=== PATIENT | male | born 1960 | race African-American/Black ===

== ENCOUNTER 2017-02-14 10:25 | Emergency (ER) | payer SELFPAY ==
[~2017-02-14] VITALS: Ht 170.2 cm; Wt 69.0 kg
[2017-02-14 10:27] VITALS: BP 131/81; PULSE 92; RESP 20; TEMP 97.7; O2SAT 96
[2017-02-14] MEDS ORDERED: LISI10TA3 PO ×2 (10:48→12:04)
[2017-02-14] MEDS ORDERED: SODIUM CHLORIDE 0.9% FLUSH 10 ML FLUSH IVF PRN (11:15)
[2017-02-14] MEDS ORDERED: methylPREDNISolone SOD SUCC 125 MG/2 ML VIAL IVP ONE (11:15)
--- NOTE | 2017-02-14 11:16 | PD ---
HPI Chief Complaint: Respiratory Symptoms Time Seen by Provider: 11:12 Travel History International Travel<30 days: No Contact w/Intl Traveler<30days: No Traveled to known affect area: No History of Present Illness HPI Patient comes in complaining of COPD exacerbation has been getting worse for the past 2 weeks since he quit smoking. Patient states he was diagnosis approximately 6 months ago and has been using his Ventolin inhaler he gets free from his zoroastrianism with little relief of his symptoms. Patient states he occasionally has coughing up yellowish phlegm. Patient reports feeling wheezing and tightness throughout his chest similar to previous COPD exacerbations. Patient also requesting a refill of his lisinopril 10 mg he's been out of for his blood pressure. Denies any chest pain, fevers, abdominal pain, nausea, vomiting, headache, back pain, loss or change in bowel or bladder , or numbness or tingling anywhere. PFSH Past Medical History COPD: Yes Diminished Hearing: No Hypertension: Yes Respiratory: Yes Tetanus Vaccination: > 5 Years ?: Not Past Surgical History Surgical History: No Previous Surgery Social History Alcohol Use: No Tobacco Use: No Substance Use: Yes (Marijuana) Allergies-Medications (Allergen,Severity, Reaction): Coded Allergies: No Known Allergies (Unverified , 02/14/17) Reported Meds & Prescriptions Reported Meds & Active Scripts Active Prednisone (21) 10 mg tab Dose Pack (Prednisone) 10 Mg Pack 10 Mg PO DIRECTED Start 02/15/17 Proair Hfa 8.5 GM Inh (Albuterol Sulfate) 90 Mcg/Act Aer 2 Puff INH Q4-6H PRN 108 mcg/actuation Lisinopril 10 Mg Tab 10 Mg PO DAILY Review of Systems Except as stated in HPI: all other systems reviewed are Neg Physical Exam Narrative GENERAL: Well-developed, well nourished, in no acute distress, and non-ill appearing. SKIN: Focused skin assessment warm and dry. HEAD: Atraumatic. Normocephalic. EYES: Pupils equal and round. EOMI. No scleral icterus. No injection or drainage. ENT: No nasal bleeding or discharge. Mucous membranes pink and moist. NECK: Trachea midline. No JVD. Supple. No nuclear rigidity. CARDIOVASCULAR: Regular rate and rhythm. No murmur appreciated. RESPIRATORY: No accessory muscle use. No respiratory distress. Wheezing and decreased breath sounds noted throughout. Breath sounds equal bilaterally. Patient speaking in full sentences without difficulty. No coughing on exam. MUSCULOSKELETAL: No obvious deformities. No clubbing. No cyanosis. No edema. Full range of motion. NEUROLOGICAL: Awake and alert. No obvious cranial nerve deficits. Motor grossly within normal limits. Normal speech. PSYCHIATRIC: Appropriate mood and affect; insight and judgment normal. Data Data Last Documented VS Vital Signs Date Time Temp Pulse Resp B/P Pulse Ox O2 Delivery O2 Flow Rate FiO2 02/14/17 11:51 67 14 160/100 02/14/17 11:51 97 Nasal Cannula 2 02/14/17 10:27 97.7 Orders Iv Access Insert/Monitor (02/14/17 11:10) Ecg Monitoring (02/14/17 11:10) Oximetry (02/14/17 11:10) Oxygen Administration (02/14/17 11:10) Chest, Single Ap (02/14/17 11:10) Sodium Chloride 0.9% Flush (Ns Flush) (02/14/17 11:15) Methylprednisolone So Succ Inj (Solumedr (02/14/17 11:15) Albuterol-Ipratropium Neb (Duoneb Neb) (02/14/17 11:15) Electrocardiogram (02/14/17 10:48) MDM Medical Decision Making Medical Screen Exam Complete: Yes Emergency Medical Condition: Yes Interpretation(s) EKG reviewed by Dr. Grover shows sinus rhythm ventricular is 72. No STEMI. Chest x-ray read by the radiologist shows: No acute disease. Differential Diagnosis COPD exacerbation, pneumonia, medication refill, medical noncompliance, other Narrative Course The patient looks great and improved well with Nebulizer and steroid medication. The patient is moving air well and in no distress nor significant dyspnea, and oxygen saturation is within normal limits. There is no clinical or radiological evidence to suggest pneumonia at this time. Diagnosis, plan of care and management were discussed with the patient who agreed with plan and feels better and ready to go home. The patient was instructed to return if worsen, worsening difficulty breathing or wheezing, persistent fever, chest pain or as needed. The patient has a prior history of hypertension and admits to noncompliance with their antihypertensive medications secondary to running out. The patient has no symptoms as well. The patient denied headache, changes in vision, nausea , vomiting, dizziness, weakness or loss of sensation. The patient denied and chest, back or abdominal pain. The patient also denied any dyspnea on exertion, orthopnea or PND. The patient denies any edema to extremities. The patients blood pressures at discharge were at an acceptable level. I discussed with the patient the importance of continuing daily antihypertensive and to not skip doses or stop medications suddenly without instruction by their primary care physician. The patient was given a refill of his medication and instructed to follow up for potential adjustment of blood pressure medications. Return warnings were given to the patient and the patient agreed with plan of care. Patient in no obvious distress upon re-evaluation. All pertinent Radiology result(s) discussed with patient. Patient was asked if they wanted to speak to my attending, which the patient did not wish to do at this time. Discussed patient with Dr. Grover prior to discharge, who is in agreement with plan of care and disposition. Any questions/concerns in reference to patient diagnosis/ condition discussed and clarified prior to patient's discharge. Reinforced sheer importance of close follow up with patient's primary physician or primary care clinic. Instructed patient to return to ED immediately, if symptoms return/ worsen. Pt showed understanding of above instructions. Further instructions and recommendations were detailed in discharge paperwork. Pt ambulated without difficulty out of ED at discharge. Diagnosis Primary Impression: COPD exacerbation Additional Impression: Medication refill Referrals: [facility] Patient Instructions: COPD (Chronic Obstructive Pulmonary Disease) (ED), General Instructions Additional Instructions: Follow-up with your primary care physician this week for reevaluation. Take all medication as prescribed. Return to the emergency department if symptoms get worse. Med/Other Pt SpecificInfo: Prescription(s) given Scripts Prednisone (21) 10 mg tab Dose Pack 10 Mg Pack10 Mg PO DIRECTED #1 DSPK Ref 0 Start 02/15/17 Prov:Aryan Grover MD 02/14/17 Albuterol 8.5 GM Inh (Proair Hfa 8.5 GM Inh)90 Mcg/Act Aer2 Puff INH Q4-6H PRN ( SHORTNESS OF BREATH) #1 INHALER Ref 0 108 mcg/actuation Prov:Aryan Grover MD 02/14/17 Lisinopril 10 Mg Tab10 Mg PO DAILY #30 TAB Ref 0 Prov:Aryan Grover MD 02/14/17 Disposition: 01 DISCHARGE HOME Condition: Stable Kevin Armstrong Feb 14, 2017 11:15
[2017-02-14 11:30] VITALS: O2SAT 98
[2017-02-14] MEDS: RESP: ALBUTEROL 2.5 MG/IPRATROPIUM 0.5 MG NEB (SCH) INH (11:30)
--- NOTE | 2017-02-14 11:45 | RADRPT ---
EXAM DATE/TIME: 02/14/2017 11:15 [facility] COMPARISON: No previous studies available for comparison. INDICATIONS : Patient has been short of breath for a week. MEDICAL HISTORY : None. SURGICAL HISTORY : None. ENCOUNTER: Initial ACUITY: 1 week PAIN SCORE: 0/10 LOCATION: Bilateral chest FINDINGS: A single view of the chest demonstrates the lungs to be symmetrically aerated without evidence of mas s, infiltrate or effusion. The cardiomediastinal contours are unremarkable. Osseous structures are intact. CONCLUSION: No acute disease. Sameer Costa MD FACR on February 14, 2017 at 11:43 Board Certified Radiologist. This report was verified electronically.
[2017-02-14 11:51] VITALS: BP 160/100; PULSE 67; RESP 14
[2017-02-14] MEDS ORDERED: PRED10PA PO (12:04)
[2017-02-14] MEDS ORDERED: ALBUAER3 INH (12:04)
--- NOTE | 2017-02-14 15:56 | EKG ---
Date Performed: 02/14/2017 Time Performed: 10:48:11 PTAGE: 56 years EKG: Sinus rhythm POSSIBLE RIGHT ATRIAL ENLARGEMENT POSSIBLE LEFT ATRIAL ENLARGEMENT MARKED LEFT AXIS DEVIATION LEFT A NTERIOR FASCICULAR BLOCK ABNORMAL ECG NO PREVIOUS TRACING DOCTOR: Juan Diego Nguyen Interpretating Date/Time 02/14/2017 15:54:48
[2017-02-15] MEDS ORDERED: HEPARIN-NS/PF INJ 500 ML ONE (16:24)
[2017-02-15] MEDS ORDERED: HEPARIN SODIUM - IV 10,000 UNITS/10 ML VIAL ONE (16:25)
[2017-02-15] MEDS ORDERED: NITROGLYCERIN INJ 5 ML ONE (16:25)
[2017-02-15] MEDS ORDERED: MIDAZOLAM HCL 2 MG/2 ML VIAL ONE (16:26)
== END 2017-02-14 12:39 | disposition home or self-care (01) ==
LOC: NEPE 10:25
DX: J44.1 Chronic obstructive pulmonary disease with (acute) exacerbation (principal); Z76.0 Encounter for issue of repeat prescription; F12.10 Cannabis abuse, uncomplicated
CPT/HCPCS: 71010; 93005; 94640; 94664; 96374; 99284; J2930; J1644; J2250; J3010

== ENCOUNTER 2017-02-15 01:39 | Inpatient (IN) | payer SELFPAY ==
[2017-02-15] VITALS (15 sets, daily range): BP systolic 108–150; BP diastolic 60–90; PULSE 56–90; RESP 16–20; TEMP 97.6–98.9; O2SAT 94–99
[~2017-02-15] VITALS: Ht 170.2 cm; Wt 69.0 kg
[~2017-02-15 01:39] MED LIST: ALBUAER3 INH; LISI10TA3 PO; PRED10PA PO
[2017-02-15] MEDS ORDERED: SODIUM CHLORIDE 0.9% FLUSH 10 ML FLUSH IVF PRN (02:00)
[2017-02-15] MEDS ORDERED: ASPIRIN 81 MG CHEW TAB PO ONE (02:00)
[2017-02-15] MEDS ORDERED: NITROGLYCERIN 0.4 MG SL 25 TABS/BTL SL ONE (02:00)
--- NOTE | 2017-02-15 02:22 | RADRPT ---
EXAM DATE/TIME: 02/15/2017 02:01 [facility] COMPARISON: CHEST SINGLE AP, February 14, 2017, 11:15. INDICATIONS : Chest pain. MEDICAL HISTORY : None. SURGICAL HISTORY : None. ENCOUNTER: Initial ACUITY: 1 day PAIN SCORE: 0/10 LOCATION: Bilateral chest FINDINGS: A single view of the chest demonstrates the lungs to be symmetrically aerated without evidence of mas s, infiltrate or effusion. The cardiomediastinal contours are unremarkable. Osseous structures are intact. CONCLUSION: No acute disease. Evin Flanagan MD on February 15, 2017 at 2:20 Board Certified Radiologist. This report was verified electronically.
[2017-02-15 02:29] LABS: BASOPHIL % 0.4 % (0.0-2.0); EOSINOPHIL % 0.1 % (0.0-4.0); HEMATOCRIT 45.7 % (39.0-51.0); HEMO FLAGS DIFF FINAL; LYMPH % 6.2 % (9.0-44.0); LYMPHOCYTE # 0.4 TH/MM3 (1.0-4.8); MEAN CELL VOLUME 85.6 FL (80.0-100.0); MEAN CORPUSCULAR HEMOGLOBIN 28.7 PG (27.0-34.0); MEAN CORPUSCULAR HGB CONC 33.5 % (32.0-36.0); MONO % 8.8 % (0.0-8.0); NEUT % 84.5 % (16.0-70.0); PLATELET COUNT 176 TH/MM3 (150-450); RED BLOOD COUNT 5.34 MIL/MM3 (4.50-5.90); RED CELL DISTRIBUTION WIDTH 16.2 % (11.6-17.2); WHITE BLOOD COUNT 7.1 TH/MM3 (4.0-11.0)
[2017-02-15 02:41] LABS: APTT (PATIENT) 21.3 SEC (24.3-30.1); PROTHROMBIN TIME - PATIENT 11.5 SEC (9.8-11.6)
--- NOTE | 2017-02-15 02:41 | PD ---
HPI Chief Complaint: Chest Pain Time Seen by Provider: 01:45 Travel History International Travel<30 days: No Contact w/Intl Traveler<30days: No Traveled to known affect area: No History of Present Illness HPI The patient is a 56 year old male who presents to the [facility] [address] emergency department with a history of chest pain that began at 9 PM today. It has been coming and going. It is located in the left chest, shoulder, and left arm. He has associated SOB, nausea and vomiting x3 with diaphoresis. He denies any history of CAD. He denies having a stress test in the past. He has a history of HTN and a prior history of smoking. He reports that he quit smoking 3 weeks ago. Interestingly, the patient was just seen in the emergency department yesterday related to his COPD exacerbation and being out of his usual blood pressure medication. He was given a prescription, however he has not filled the prescription yet. Ambulance services arrived at the scene to evaluate the patient and the patient reportedly had a heart rate in the 50s with a blood pressure systolic in the 60s. IV access was obtained, the patient was given atropine 0.5 mg IV and normal saline a 500 mL bolus. The patient on arrival has a blood pressure systolic in the 100s. The patient reports continued nausea. His heart rate on arrival is in the 80s. The patient denies any history of fever, cough, congestion, neck pain, abdominal pain, diarrhea, urinary symptoms, or neurologic symptoms. [facility] Past Medical History Narrative Medical The patient's past medical history is significant for COPD, Hypertension. He denies having a PCP. COPD: Yes Diminished Hearing: No Hypertension: Yes Respiratory: Yes ?: Not Past Surgical History Narrative Surgical The patient's past surgical history is reportedly none. Surgical History: No Previous Surgery Social History Alcohol Use: No Tobacco Use: No (quit 3 weeks ago.) Substance Use: Yes (Marijuana) Allergies-Medications (Allergen,Severity, Reaction): Coded Allergies: No Known Allergies (Unverified , 02/14/17) Reported Meds & Prescriptions Reported Meds & Active Scripts Active Prednisone (21) 10 mg tab Dose Pack (Prednisone) 10 Mg Pack 10 Mg PO DIRECTED Start 02/15/17 Proair Hfa 8.5 GM Inh (Albuterol Sulfate) 90 Mcg/Act Aer 2 Puff INH Q4-6H PRN 108 mcg/actuation Lisinopril 10 Mg Tab 10 Mg PO DAILY Review of Systems Except as stated in HPI: all other systems reviewed are Neg General / Constitutional: No: Fever Eyes: No: Visual changes HENT: Positive: Lightheadedness, No: Headaches Cardiovascular: Positive: Chest Pain or Discomfort, Diaphoresis, Dyspnea on exertion Respiratory: Positive: Shortness of Breath Gastrointestinal: Positive: Nausea, Vomiting, No: Abdominal Pain Genitourinary: No: Dysuria Musculoskeletal: No: Pain Skin: No Rash Neurologic: Positive: Dizziness, No: Weakness, Change in Mentation, Slurred Speech, Sensory Disturbance Psychiatric: No: Depression Endocrine: No: Polydipsia Hematologic/Lymphatic: No: Easy Bruising Physical Exam Narrative General: The patient is a well-developed well-nourished male in no acute distress. Head and Neck exam: Head is normocephalic atraumatic. Eyes: EOMI, pupils are equal round and reactive to light. Nose: Midline septum with pink mucous membranes Mouth: Dentition unremarkable. Moist mucus membranes. Posterior oropharynx is not erythematous. No tonsillar hypertrophy. Uvula midline. Airway patent. Neck: No palpable lymphadenopathy. No nuchal rigidity. No thyromegaly. Cardiovascular: Regular rate and rhythm without murmurs, gallops, or rubs. No pulse deficit to the extremities and simultaneous auscultation and palpation of his radial artery. Lungs: Clear to auscultation bilaterally. No wheezes, rhonchi, or rales. Abdomen: Soft, without tenderness to palpation in all 4 quadrants of the abdomen. No guarding, rebound, or rigidity. Normal bowel sounds are audible. No tenderness on palpation of McBurney's point. Negative [place] sign. Extremities: No clubbing, cyanosis, or edema. 2+ pulses in all 4 extremities. Back: No spinous process tenderness to palpation. No costovertebral angle tenderness to palpation. Neurologic Exam: Grossly nonfocal. Skin Exam: No rash noted. Intact skin that is warm and dry. Data Data Last Documented VS Vital Signs Date Time Temp Pulse Resp B/P Pulse Ox O2 Delivery O2 Flow Rate FiO2 02/15/17 03:10 85 18 150/80 98 Nasal Cannula 2 02/15/17 01:46 97.6 Orders Electrocardiogram (02/15/17 01:47) B-Type Natriuretic Peptide (02/15/17 01:47) Ckmb (Isoenzyme) Profile (02/15/17 01:47) Complete Blood Count With Diff (02/15/17 01:47) Comprehensive Metabolic Panel (02/15/17 01:47) D-Dimer (02/15/17 01:47) Magnesium (Mg) (02/15/17 01:47) Prothrombin Time / Inr (Pt) (02/15/17 01:47) Act Partial Throm Time (Ptt) (02/15/17 01:47) Troponin I (02/15/17 01:47) Lipase (02/15/17 01:47) Chest, Single Ap (02/15/17 01:47) Ecg Monitoring (02/15/17 01:47) Bilateral Bp Monitoring (02/15/17 01:47) Iv Access Insert/Monitor (02/15/17 01:47) Oximetry (02/15/17 01:47) Oxygen Administration (02/15/17 01:47) Aspirin Chew (Aspirin Chew) (02/15/17 02:00) Sodium Chloride 0.9% Flush (Ns Flush) (02/15/17 02:00) Nitroglycerin Sl (Nitrostat Sl) (02/15/17 02:00) CKMB (02/15/17 02:10) CKMB% (02/15/17 02:10) Ondansetron Inj (Zofran Inj) (02/15/17 03:15) Sodium Chlorid 0.9% 500 Ml Inj (Ns 500 M (02/15/17 03:15) Ventilation & Perfusion Scan (02/15/17 ) Place In Observation (02/15/17 ) Vital Signs (Adult) Q4H (02/15/17 04:07) Activity Oob With Assistance (02/15/17 04:07) Orthotics Prosthetics Technician / Telemetry .CONTINUOUS (02/15/17 04:07) Sodium Chloride 0.9% Flush (Ns Flush) (02/15/17 04:15) Sodium Chloride 0.9% Flush (Ns Flush) (02/15/17 09:00) Basic Metabolic Panel (Bmp) (02/16/17 06:00) Complete Blood Count With Diff (02/16/17 06:00) Case Management Consult (02/15/17 04:07) Naloxone Inj (Narcan Inj) (02/15/17 04:15) Admit Order (Ed Use Only) (02/15/17 04:08) Sodium Chlor 0.9% 1000 Ml Inj (Ns 1000 M (02/15/17 04:15) Labs Laboratory Tests Test 02/15/17 02:10 White Blood Count 7.1 TH/MM3 Red Blood Count 5.34 MIL/MM3 Hemoglobin 15.3 GM/DL Hematocrit 45.7 % Mean Corpuscular Volume 85.6 FL Mean Corpuscular Hemoglobin 28.7 PG Mean Corpuscular Hemoglobin 33.5 % Concent Red Cell Distribution Width 16.2 % Platelet Count 176 TH/MM3 Mean Platelet Volume 9.5 FL Neutrophils (%) (Auto) 84.5 % Lymphocytes (%) (Auto) 6.2 % Monocytes (%) (Auto) 8.8 % Eosinophils (%) (Auto) 0.1 % Basophils (%) (Auto) 0.4 % Neutrophils # (Auto) 6.0 TH/MM3 Lymphocytes # (Auto) 0.4 TH/MM3 Monocytes # (Auto) 0.6 TH/MM3 Eosinophils # (Auto) 0.0 TH/MM3 Basophils # (Auto) 0.0 TH/MM3 CBC Comment DIFF FINAL Differential Comment Prothrombin Time 11.5 SEC Prothromb Time International 1.0 RATIO Ratio Activated Partial 21.3 SEC Thromboplast Time D-Dimer Quantitative (PE/DVT) 0.66 MG/L FEU Sodium Level 141 MEQ/L Potassium Level 5.2 MEQ/L Chloride Level 109 MEQ/L Carbon Dioxide Level 22.9 MEQ/L Anion Gap 9 MEQ/L Blood Urea Nitrogen 26 MG/DL Creatinine 2.58 MG/DL Estimat Glomerular Filtration 32 ML/MIN Rate Random Glucose 137 MG/DL Calcium Level 8.5 MG/DL Magnesium Level 2.0 MG/DL Total Bilirubin 0.3 MG/DL Aspartate Amino Transf 15 U/L (AST/SGOT) Alanine Aminotransferase 22 U/L (ALT/SGPT) Alkaline Phosphatase 77 U/L Total Creatine Kinase 114 U/L Creatine Kinase MB 1.0 NG/ML Troponin I 0.02 NG/ML B-Type Natriuretic Peptide 6 PG/ML Total Protein 7.3 GM/DL Albumin 3.3 GM/DL Lipase 79 U/L MDM Medical Decision Making Medical Screen Exam Complete: Yes Emergency Medical Condition: Yes Medical Record Reviewed: Yes Interpretation(s) Last Impressions Chest X-Ray 02/15/17 0147 Signed Impressions: Service Date/Time: Wednesday, February 15, 2017 02:01 - CONCLUSION: No acute disease. Evin Flanagan MD Lung Scan-VQ Nuclear Medicine 02/15/17 0000 Signed Impressions: Service Date/Time: Wednesday, February 15, 2017 08:31 - CONCLUSION: Low probability scan Angelo Bower MD Differential Diagnosis Acute coronary syndrome, versus cardiac arrhythmia, versus pneumothorax, versus pneumonia, versus COPD exacerbation, versus pulmonary embolism Narrative Course During the course of the patients emergency department visit, the patients history, examination, and differential diagnosis were reviewed with the patient. The patient had IV access obtained and blood work sent for analysis. The patient was placed on a air sampling and monitoring with oximetry and blood pressure monitoring. An ECG was done on arrival. The patient's ECG reveals a sinus rhythm with a heart rate of 90, QRS duration is 115 ms with an incomplete right bundle branch block, QTC is 431 ms, no acute ST segment elevation is noted. The patient was initially provided 162 mg of aspirin by mouth. The patient was given a second normal saline 500 mL bolus, Zofran 4 mg IV. The patients laboratory studies were reviewed and remarkable for a white count of 7.1, hemoglobin 15.3, platelets 176 with neutrophils 84.5, lymphocytes 6.2, monocytes 8.8, CMP is remarkable for a potassium of 5.2, chloride 109, BUN 26, creatinine 2.58, glucose 137, CPK 114, troponin I is 0.02, BNP is 6, lipase 79, PT PTT unremarkable, d-dimer 0.66. Given the patient's elevation of his creatinine, VQ scan has been ordered to rule out PE. Radiology studies were reviewed and remarkable for a chest x-ray that shows no acute cardiopulmonary disease. The patient will be admitted to the hospital for rule out serial cardiac enzyme protocol and additional testing to include a VQ scan, additional IV hydration due to hypotension prior to arrival and renal insufficiency The patients results were discussed with the patient, including the plan of care. I explained that further testing and/ or monitoring is indicated based on the patients history, examination, and/ or laboratory findings. Therefore, I recommended admission for additional evaluation. The patient expressed understanding and was agreeable with this plan. The patient was admitted to the hospital in stable condition and [facility] Physician Communication Physician Communication The patient's case was discussed with Dr. Izquierdo who did agree to admit the patient for further evaluation and treatment at this time. Diagnosis Primary Impression: Chest pain, rule out acute myocardial infarction Admitting Information Admitting Physician Requests: Observation Padmini Gil MD Feb 15, 2017 02:41
[2017-02-15 03:00] LABS: ALKALINE PHOSPHATASE 77 U/L (45-117); ALT (GPT) 22 U/L (12-78); ANION GAP 9 MEQ/L (5-15); AST (GOT) 15 U/L (15-37); BICARBONATE 22.9 MEQ/L (21.0-32.0); BLOOD UREA NITROGEN 26 MG/DL (7-18); CHLORIDE 109 MEQ/L (98-107); CREATINE KINASE 114 U/L (39-308); GLOMERULAR FILTRATION RATE 32 ML/MIN (>89); POTASSIUM 5.2 MEQ/L (3.5-5.1); SODIUM (NA) 141 MEQ/L (136-145); TOTAL BILIRUBIN ADULT 0.3 MG/DL (0.2-1.0)
[2017-02-15] MEDS ORDERED: SODIUM CHLORID 0.9% 500 ML INJ 500 ML IV ONE (03:15)
[2017-02-15] MEDS ORDERED: ONDANSETRON HCL 4 MG/2 ML VIAL IV ONE (03:15)
[2017-02-15] MEDS ORDERED: NALOXONE HCL 0.4 MG/ML AMP IV PRN (04:15)
[2017-02-15] MEDS ORDERED: SODIUM CHLORIDE 0.9% FLUSH 10 ML FLUSH IV FLUSH PRN (04:15)
[2017-02-15] MEDS: SODIUM CHLOR 0.9% 1000 ML INJ 1,000 ML IV SCH ×3 (04:47→21:37)
--- NOTE | 2017-02-15 09:19 | RADRPT ---
EXAM DATE/TIME: 02/15/2017 08:31 [facility] COMPARISON: CHEST SINGLE AP, February 15, 2017, 2:01. INDICATIONS : Chest pain and dyspnea. DOSE: 1.6 mCi Tc99m DTPA 8.8 mCi Tc99m MAA MEDICAL HISTORY : Hypertension. Chronic obstructive pulmonary disease. SURGICAL HISTORY : None. ENCOUNTER: Initial ACUITY: 1 day PAIN SCALE: 3/10 LOCATION: Bilateral chest TECHNIQUE: Following five minutes of tidal breathing of DTPA aerosol, planar images of the lungs were performed in eight projections. The patient was then injected with MAA, and eight-view perfusion scan was perf ormed. FINDINGS: Heterogeneous pattern of perfusion with non-segmental defects and multiple matched defects. No signif icant mismatches to elevate likelihood of pulmonary embolism. CONCLUSION: Low probability scan Angelo Bower MD on February 15, 2017 at 9:16 Board Certified Radiologist. This report was verified electronically.
--- NOTE | 2017-02-15 09:46 | HHI.HP ---
[facility] No Primary Care Physician Admission Diagnosis cp r/o Mi, near syncope, transient hypotension Diagnoses: Chief Complaint: Chest pain Travel History International Travel<30 Days: No Contact w/Intl Traveler <30 Da: No Traveled to Known Affected Are: No History of Present Illness Written by Jigar Rowe, acting as scribe for Dr. Parrish on 02/15/17 at 09:46. This note was transcribed by scribTERESA Nieto. I, Dr. Roberto Parrish personally performed the history, physical exam, and medical decision making; and confirmed the accuracy of the information in the transcribed note. Authenticated by Dr. Roberto Parrish on 02/15/17 at 23:57. 56-year-old male with a past medical history of hypertension and COPD who presented for chest pain. The patient states about 11 PM last night he was sitting and began having severe chest pain/pressure. He states the pain radiated to his left arm into his neck. He had associated sweating, vomiting 3 , slight shortness of breath, lightheadedness/dizziness. He states the pain lasted approximately one hour and then spontaneously resolved. He states the pain was worse whenever he tried walking. He does state that he has some similar pain today, but is much less severe. He denies any prior history of heart disease, or diabetes. He did quit smoking tobacco 3 weeks ago, but continues to smoke marijuana, and does occasionally use crack cocaine, last use 3 days ago. The patient has been told that he has COPD, but is on albuterol inhaler she feels like he uses too much. States he normally has to use albuterol inhaler 1012 times daily. Review of Systems Except as stated in HPI: all other systems reviewed are Neg Past Family Social History Past Medical History Hypertension COPD Past Surgical History None Reported Medications Proair Hfa 8.5 GM Inh (Albuterol Sulfate) 90 Mcg/Act Aer 2 Puff INH Q4-6H PRN 108 mcg/actuation Lisinopril 10 Mg Tab 10 Mg PO DAILY Allergies: Coded Allergies: No Known Allergies (Unverified , 02/14/17) Active Ordered Medications Current Medications Medications (Trade) Dose Ordered Sig/Danial Route Start Time Stop Time Status Last Admin (NS Flush) 2 ml UNSCH PRN IV FLUSH 02/15/17 04:15 02/15/17 04:47 (NS Flush) 2 ml BID IV FLUSH 02/15/17 09:00 02/15/17 09:56 Naloxone HCl 0.4 mg 0.4 mg UNSCH PRN IV 02/15/17 04:15 (NS 1000 ml Inj) 1,000 ml @ 125 mls/hr Q8H IV 02/15/17 04:15 02/15/17 04:47 (Aspirin Chew) 162 mg DAILY PO 02/15/17 09:00 02/15/17 09:55 Family History Mother has numerous health conditions including heart and kidney disease Brother had multiple heart attacks, first around age 50 Social History Quit smoking tobacco 3 weeks ago Current marijuana use Occasional crack cocaine smoking Denies any alcohol use Physical Exam Vital Signs Vital Signs Date Time Temp Pulse Resp B/P Pulse Ox O2 Delivery O2 Flow Rate FiO2 02/15/17 07:57 98 Nasal Cannula 2.00 02/15/17 07:47 98.2 58 16 115/66 98 02/15/17 05:18 68 02/15/17 03:10 85 18 150/80 98 Nasal Cannula 2 02/15/17 01:50 97 Nasal Cannula 2 02/15/17 01:50 97 Nasal Cannula 2 02/15/17 01:50 88 02/15/17 01:46 97.6 90 18 108/60 99 Physical Exam GENERAL: Well-developed well-nourished. In no acute distress. SKIN: Warm and dry. No lesions noted. HEENT: Normocephalic. Pupils equal and round. Mucous membranes pink and moist. CARDIOVASCULAR: Regular rate and rhythm. No murmur appreciated. RESPIRATORY: No accessory muscle use. Clear to auscultation. Breath sounds equal bilaterally. GASTROINTESTINAL: Abdomen soft, non-tender, nondistended. Bowel sounds x4. MUSCULOSKELETAL: No obvious deformities. No clubbing or cyanosis. No edema. NEUROLOGICAL: Awake and alert. No focal neurological deficits. Moves upper and lower extremities spontaneously. Normal speech. PSYCHIATRIC: Appropriate mood and affect; insight and judgment normal. Laboratory Laboratory Tests Test 02/15/17 02:10 White Blood Count 7.1 Red Blood Count 5.34 Hemoglobin 15.3 Hematocrit 45.7 Mean Corpuscular Volume 85.6 Mean Corpuscular Hemoglobin 28.7 Mean Corpuscular Hemoglobin 33.5 Concent Red Cell Distribution Width 16.2 Platelet Count 176 Mean Platelet Volume 9.5 Neutrophils (%) (Auto) 84.5 Lymphocytes (%) (Auto) 6.2 Monocytes (%) (Auto) 8.8 Eosinophils (%) (Auto) 0.1 Basophils (%) (Auto) 0.4 Neutrophils # (Auto) 6.0 Lymphocytes # (Auto) 0.4 Monocytes # (Auto) 0.6 Eosinophils # (Auto) 0.0 Basophils # (Auto) 0.0 CBC Comment DIFF FINAL Differential Comment Prothrombin Time 11.5 Prothromb Time International 1.0 Ratio Activated Partial 21.3 Thromboplast Time D-Dimer Quantitative (PE/DVT) 0.66 Sodium Level 141 Potassium Level 5.2 Chloride Level 109 Carbon Dioxide Level 22.9 Anion Gap 9 Blood Urea Nitrogen 26 Creatinine 2.58 Estimat Glomerular Filtration 32 Rate Random Glucose 137 Calcium Level 8.5 Magnesium Level 2.0 Total Bilirubin 0.3 Aspartate Amino Transf 15 (AST/SGOT) Alanine Aminotransferase 22 (ALT/SGPT) Alkaline Phosphatase 77 Total Creatine Kinase 114 Creatine Kinase MB 1.0 Troponin I 0.02 B-Type Natriuretic Peptide 6 Total Protein 7.3 Albumin 3.3 Lipase 79 Result Diagram: 02/15/1720902/15/17 021 Imaging Last Impressions Chest X-Ray 02/15/17 0147 Signed Impressions: Service Date/Time: Wednesday, February 15, 2017 02:01 - CONCLUSION: No acute disease. Evin Flanagan MD Lung Scan-VQ Nuclear Medicine 02/15/17 0000 Signed Impressions: Service Date/Time: Wednesday, February 15, 2017 08:31 - CONCLUSION: Low probability scan Angelo Bower MD Assessment and Plan Assessment and Plan 56-year-old male with a past medical history of hypertension and COPD who presented for chest pain Chest pain: With some typical features. Initial troponin and EKG 2 with no ischemic changes. Risk factors include tobacco use, hypertension, family history. VQ scan with low probability. -Continue trending cardiac enzymes and EKGs -Start daily aspirin. -Plan for stress test in the a.m. -Check lipid profile and hemoglobin A1c COPD: Patient was seen in the ED yesterday for COPD exacerbation and was discharged with albuterol inhaler and prednisone. Chest x-ray clear. -Continue oral prednisone -Scheduled and as needed nebs -Start Symbicort Hypertension: Reportedly hypotension upon EMS arrival. Currently normotensive. -Hold home lisinopril and monitor BP. ADRIENNE: Creatinine 2.58, no previous labs for comparison. Possibly secondary to vomiting last night with dehydration. Associated potassium 5.2. -IVF and follow-up BMP DVT prophylaxis: SCDs Addendum: Second troponin was significantly elevated. Patient had typical chest pain and along with elevated troponin, he was diagnosed with NSTEMI. We started patient on heparin drip and consulted cardiology. Patient underwent cardiac cath which showed minimal non-obstructive non- dominant RCA disease. Cardiology recommended 2D echo. Patient's chest pain as well as troponin elevation was thought to be related to crack use. Patient admitted using crack approximately 3 days ago. If Echo is unremarkable, we will likely discharge patient on 02/16/2017. Discussed Condition With Patient Jgiar Rowe Feb 15, 2017 09:46 Marcie Parrish DO Feb 15, 2017 23:58
[2017-02-15] MEDS: ASPIRIN 81 MG CHEW TAB PO SCH (09:55)
[2017-02-15] MEDS: SODIUM CHLORIDE 0.9% FLUSH 10 ML FLUSH IV FLUSH SCH ×2 (09:56→21:36)
[2017-02-15] MEDS ORDERED: predniSONE 20 MG TAB PO SCH (10:15)
[2017-02-15] MEDS ORDERED: RESP: ALBUTEROL 1.25 MG/3 ML NEB (PRN) NEB (10:15)
[2017-02-15] MEDS: BUDESONIDE-FORMOTEROL 80/4.5 MCG INHALER INH SCH ×2 (11:56→21:00)
[2017-02-15] MEDS ORDERED: HEPARIN SODIUM - IV 10,000 UNITS/10 ML VIAL IV ONE (13:30)
[2017-02-15] MEDS ORDERED: HEPARIN-D5W INJ 250 ML IV SCH (13:30)
[2017-02-15] MEDS ORDERED: PILL SPLITTER OTHER PRN (13:45)
[2017-02-15] MEDS ORDERED: ATORVASTATIN 80 MG TAB PO ONE (13:45)
[2017-02-15 13:48] LABS: CKMB 32.5 NG/ML (0.5-3.6)
[2017-02-15] MEDS: RESP: ALBUTEROL 2.5 MG/IPRATROPIUM 0.5 MG NEB (SCH) NEB ×2 (14:08→20:04)
[2017-02-15] MEDS: NITROGLYCERIN 2% OINT 1 GM PACKET TOPICAL SCH ×2 (14:20→21:35)
[2017-02-15 14:48] LABS: MEAN CELL VOLUME 85.7 FL (80.0-100.0); MEAN CORPUSCULAR HEMOGLOBIN 28.2 PG (27.0-34.0); MEAN CORPUSCULAR HGB CONC 32.9 % (32.0-36.0); PLATELET COUNT 167 TH/MM3 (150-450); RED BLOOD COUNT 4.67 MIL/MM3 (4.50-5.90); RED CELL DISTRIBUTION WIDTH 16.6 % (11.6-17.2); REVIEW FLAG FINAL; WHITE BLOOD COUNT 7.2 TH/MM3 (4.0-11.0)
--- NOTE | 2017-02-15 14:53 | EKG ---
Date Performed: 02/15/2017 Time Performed: 09:40:04 PTAGE: 56 years EKG: SINUS BRADYCARDIA NONSPECIFIC ST ELEVATION BORDERLINE ECG PREVIOUS TRACING : 02/15/2017 01.47 DOCTOR: Yasemin Singh Interpretating Date/Time 02/15/2017 14:51:27
[2017-02-15 15:06] LABS: APTT (PATIENT) 24.6 SEC (24.3-30.1); PROTHROMBIN TIME - PATIENT 11.2 SEC (9.8-11.6)
[2017-02-15 15:23] LABS: CREATINE KINASE 344 U/L (39-308)
--- NOTE | 2017-02-15 15:33 | EKG ---
Date Performed: 02/15/2017 Time Performed: 01:47:25 PTAGE: 56 years EKG: Sinus rhythm WITH FIRST DEGREE AV BLOCK POSSIBLE LEFT ATRIAL ENLARGEMENT INDETERMINATE AXIS INCOMPLETE RIGHT BUND LE BRANCH BLOCK NONSPECIFIC ST & T-WAVE ABNORMALITY ABNORMAL ECG NO PREVIOUS TRACING DOCTOR: Yasemin Singh Interpretating Date/Time 02/15/2017 15:32:22
[2017-02-15] MEDS ORDERED: BIVALIRUDIN 250 MG VIAL ONE (16:45)
[2017-02-15 16:46] LABS: HEMOGLOBIN A1a 1.1 %; HEMOGLOBIN A1b 1.7 %; HEMOGLOBIN Ao 84.7 %; HEMOGLOBIN LA1C 2.1 %; HEMOGLOBIN P3 3.9 %
[2017-02-15] MEDS ORDERED: IOHEXOL 350 MG/ML 50 ML BTL (for Cath Lab) OTHER ONE (16:48)
[2017-02-15 17:28] LABS: BICARBONATE 25.4 MEQ/L (21.0-32.0); POTASSIUM 4.3 MEQ/L (3.5-5.1)
[2017-02-15] MEDS ORDERED: MISC INFORMATION XX ONE (17:30)
[2017-02-15] MEDS ORDERED: MIDAZOLAM HCL 2 MG/2 ML VIAL ONE (17:33)
--- NOTE | 2017-02-15 20:51 | MB ---
cc: KEYA POLK DATE OF CONSULTATION: 02/15/2017 REASON FOR CONSULTATION: [id number] ID. HISTORY OF PRESENT ILLNESS This is a 56 year-old gentleman without prior history of known heart disease, but does have a history of hypertension, COPD, who presented with acute onset of substernal chest pain which started yesterday. He describes it as a heaviness, chest sensation with radiation towards the neck. It was associated yesterday with some diaphoresis, in addition to nausea and vomiting, lightheadedness, dizziness. He came into the emergency department with continued ongoing symptoms. He does report that he did smoke marijuana in addition to crack cocaine, last use about three days ago. His initial troponin was negative but it trended up to 14.4 and he is still having some chest pain symptoms now. We are consulted for further recommendations. His electrocardiogram shows some nonspecific changes. PAST MEDICAL HISTORY: 1. COPD. 2. Hypertension. REPORTED MEDICATIONS: ProAir ALLERGIES No known drug allergies. FAMILY HISTORY Denies any family history of sudden cardiac . SOCIAL HISTORY: He quit smoking three weeks ago. Current marijuana user. Occasional crack cocaine user, last use about three days ago. Denies any alcohol use. REVIEW OF SYSTEMS: A 12 point review of systems was performed and is negative unless otherwise noted in the history of present illness. PHYSICAL EXAMINATION VITAL SIGNS: Temperature 98, pulse 56, blood pressure 149/90 mmHg. General: Alert and oriented x3 in no acute distress. HEENT: Exam shows pupils reactive to light and accommodation. Extraocular movements intact. No elevation in the jugular venous distention. No thyromegaly. No lymphadenopathy. No carotid bruits. LUNGS: Clear to auscultation bilaterally. CARDIAC: Regular rate and rhythm without murmurs, rubs, or gallops. ABDOMEN: Nontender, nondistended. Good bowel sounds. No hepatosplenomegaly. EXTREMITIES: No clubbing, cyanosis or edema. Good peripheral pulses. NEUROLOGIC: Cranial nerves intact. Motor, sensory grossly intact. LABORATORY DATA WBC 7.3, hemoglobin 13.2, platelet count 167, INR is 1, potassium 5.2, BUN is 26, creatinine 2.58. Electrocardiogram: sinus rhythm some nonspecific ST abnormality. ASSESSMENT 1. Non ST elevation ID with ongoing chest pain. 2. Hypertension. 3. COPD. 4. Crack cocaine and marijuana use. PLAN: Given the quite elevated troponin in a short period of time and the ongoing symptoms, it appears he is having acute coronary syndrome. Will plan to take him to the Cardiac Catheterization Laboratory. His creatinine is quite elevated. We do not have a baseline. He had had some nausea, vomiting, diaphoresis yesterday. He has been getting hydrated all day. Will order for a stat, repeat basic metabolic panel but unfortunately given his ongoing symptoms, he will need to undergo cardiac catheterization with minimizing contrast exposure as much as possible. Will get a 2-D echocardiogram. MD RODRI Crane/JANETT /4:19 PM /8:37 PM
[2017-02-15 21:08] LABS: APTT (PATIENT) 24.5 SEC (24.3-30.1)
--- NOTE | 2017-02-15 21:26 | MA ---
cc: TOMAS POLK MD DATE 02/15/2017 INDICATION Chest pain. PROCEDURES PERFORMED 1. Fluoroscopy with interpretation. 2. Left heart catheterization. 3. Coronary angiography. METHOD Risks, benefits and alternatives discussed with the patient. The patient understood and consented to the procedure. PROCEDURE DETAILS The patient brought to the catheterization lab and placed on the catheterization table. Right wrist was prepped and draped in sterile fashion. Right wrist anesthetized with 2% lidocaine. Right radial artery was cannulated and a 6-Mauritanian 7 cm sheath was placed without difficulty. LEFT HEART CATHETERIZATION 6-Mauritanian JR-5 catheter was advanced across the aortic valve without difficulty. Intraoperative hemodynamics measures 115/8 mmHg. CORONARY ANGIOGRAPHY 1. Left main coronary artery was angiographically normal. 2. Left anterior descending coronary is a large caliber size vessel, angiographically normal. 3. Left circumflex. Large caliber size and dominant vessel, angiographically normal. 4. Right coronary artery is nondominant and has a 30% proximal stenosis. CONCLUSION 1. Minimal nonobstructive nondominant right coronary artery disease. 2. Normal left-sided filling pressures. PLAN I will follow up with a 2-D echocardiogram. Likely his NSTEMI was induced by the vasospasm secondary to his crack cocaine use. He can follow up with his primary care physician in the outpatient setting. We will sign off. Call if further questions. Tomas Polk MD SM/KK /5:30 PM /9:11 PM
[2017-02-15] MEDS: METOPROLOL TARTRATE 25 MG TAB PO SCH (21:35)
[2017-02-16] VITALS (19 sets, daily range): BP systolic 120–146; BP diastolic 71–98; PULSE 50–72; RESP 18–58; TEMP 97.8–98.5; O2SAT 96–100
[2017-02-16] MEDS: SODIUM CHLOR 0.9% 1000 ML INJ 1,000 ML IV SCH (05:53)
[2017-02-16] MEDS: NITROGLYCERIN 2% OINT 1 GM PACKET TOPICAL SCH ×2 (06:09→14:00)
[2017-02-16 06:54] LABS: AUTOMATED NEUTROPHIL # 3.5 TH/MM3 (1.8-7.7); BASOPHIL # 0.1 TH/MM3 (0-0.2); BASOPHIL % 0.9 % (0.0-2.0); EOSINOPHIL % 0.8 % (0.0-4.0); HEMATOCRIT 38.3 % (39.0-51.0); HEMO FLAGS DIFF FINAL; LYMPH % 28.8 % (9.0-44.0); LYMPHOCYTE # 1.7 TH/MM3 (1.0-4.8); MEAN CELL VOLUME 85.5 FL (80.0-100.0); MEAN CORPUSCULAR HEMOGLOBIN 28.7 PG (27.0-34.0); MEAN CORPUSCULAR HGB CONC 33.6 % (32.0-36.0); MONO % 9.1 % (0.0-8.0); NEUT % 60.4 % (16.0-70.0); PLATELET COUNT 140 TH/MM3 (150-450); RED BLOOD COUNT 4.48 MIL/MM3 (4.50-5.90); RED CELL DISTRIBUTION WIDTH 16.5 % (11.6-17.2); WHITE BLOOD COUNT 5.7 TH/MM3 (4.0-11.0)
[2017-02-16] MEDS: RESP: ALBUTEROL 2.5 MG/IPRATROPIUM 0.5 MG NEB (SCH) NEB ×2 (07:10→14:00)
[2017-02-16 07:14] LABS: BICARBONATE 26.1 MEQ/L (21.0-32.0); POTASSIUM 4.6 MEQ/L (3.5-5.1)
[2017-02-16 07:17] LABS: HDL CHOLESTEROL 78.4 MG/DL (40.0-60.0)
[2017-02-16] MEDS ORDERED: ASPI81TA11 PO (08:04)
[2017-02-16] MEDS ORDERED: LOVA20TA PO (08:07)
--- NOTE | 2017-02-16 08:14 | HHI.PR ---
Subjective Remarks Follow up for chest pain, NSTEMI. Patient underwent cath yesterday. No stent placed. 2D echo pending today. No fever, chills. Objective Vitals Vital Signs Date Time Temp Pulse Resp B/P Pulse Ox O2 Delivery O2 Flow Rate FiO2 02/16/17 07:11 99 02/16/17 07:00 54 02/16/17 06:00 52 02/16/17 05:11 55 02/16/17 04:36 97.8 50 18 130/90 96 02/16/17 04:36 53 02/16/17 03:00 53 02/16/17 02:00 52 02/16/17 01:00 54 02/16/17 00:00 56 02/15/17 23:00 98.9 71 20 119/76 96 02/15/17 23:00 59 02/15/17 22:00 66 02/15/17 21:00 62 02/15/17 20:00 68 02/15/17 19:00 58 02/15/17 19:00 98.8 64 20 135/72 96 02/15/17 17:47 96 Room Air 02/15/17 15:00 98.0 56 18 149/90 99 02/15/17 14:10 94 21 02/15/17 11:42 98.1 65 16 129/60 95 I/O 02/15/17 02/15/17 02/15/17 02/16/17 02/16/17 02/16/17 07:00 15:00 23:00 07:00 15:00 23:00 Intake Total 1283 ml Output Total 500 ml Balance 783 ml Intake Oral 480 ml IV Total 803 ml Output Urine Total 500 ml Result Diagram: 02/16/17 0555 02/16/17 0555 Imaging Last Impressions Chest X-Ray 02/15/17 0147 Signed Impressions: Service Date/Time: Wednesday, February 15, 2017 02:01 - CONCLUSION: No acute disease. Evin Flanagan MD Lung Scan-VQ Nuclear Medicine 02/15/17 0000 Signed Impressions: Service Date/Time: Wednesday, February 15, 2017 08:31 - CONCLUSION: Low probability scan Angelo Bower MD Objective Remarks GENERAL: AOX3, NAD. SKIN: Warm and dry. HEAD: Normocephalic. EYES: No scleral icterus. No injection or drainage. NECK: Supple, trachea midline. No JVD or lymphadenopathy. CARDIOVASCULAR: Regular rate and rhythm without murmurs, gallops, or rubs. RESPIRATORY: Breath sounds equal bilaterally. No accessory muscle use. GASTROINTESTINAL: Abdomen soft, non-tender, nondistended. MUSCULOSKELETAL: No cyanosis, or edema. BACK: Nontender without obvious deformity. No CVA tenderness. Procedures Cardiac cath 02/15/2017 CORONARY ANGIOGRAPHY 1. Left main coronary artery was angiographically normal. 2. Left anterior descending coronary is a large caliber size vessel, angiographically normal. 3. Left circumflex. Large caliber size and dominant vessel, angiographically normal. 4. Right coronary artery is nondominant and has a 30% proximal stenosis. CONCLUSION 1. Minimal nonobstructive nondominant right coronary artery disease. 2. Normal left-sided filling pressures. Echo 02/16/2017 CONCLUSIONS Normal left ventricular size. Mild concentric left ventricular hypertrophy. The left ventricular systolic function is normal with an estimated ejection fraction in the range of 55-60%. Trace mitral valve regurgitation. There is a trivial pericardial effusion present. A/P Problem List: (1) NSTEMI (non-ST elevated myocardial infarction) ICD Code: I21.4 Status: Acute (2) Crack cocaine use ICD Code: F14.90 Status: Acute Assessment and Plan 56-year-old male with a past medical history of hypertension and COPD who presented for chest pain - NSTEMI - Troponins 0.02 --> 14.40 --> 13.90. - s/p cardiac cath. - Daily aspirin. - Lipid profile indicates LDL 93, HgA1C 5.7. - Echo shows LV EF 55-60%. - COPD - continue Albuterol PRN. - Hypertension: Reportedly hypotension upon EMS arrival. Currently normotensive. - Acute kidney injury - Creatinine 2.58 --> 1.19 --> 1.00. Resolved. - Crack cocaine abuse - Patient has been strongly advised to abstain from cocaine abuse. DVT prophylaxis: SCDs Discharge patient to home Condition on discharge: Improved Heart healthy Diet as tolerated Ad Olive activity Rx written: - Aspirin 81mg Qday - Lovastatin 20mg Qday - STOP Lisinopril Follow-up with primary care physician within one week. Marcie Parrish DO Feb 16, 2017 08:14
--- NOTE | 2017-02-16 08:33 | EKG ---
Date Performed: 02/15/2017 Time Performed: 13:41:14 PTAGE: 56 years EKG: SINUS BRADYCARDIA BORDERLINE ECG PREVIOUS TRACING : 02/15/2017 09.40 DOCTOR: García Whiteside Interpretating Date/Time 02/16/2017 08:28:54
[2017-02-16] MEDS: SODIUM CHLORIDE 0.9% FLUSH 10 ML FLUSH IV FLUSH SCH (09:00)
[2017-02-16] MEDS: METOPROLOL TARTRATE 25 MG TAB PO SCH (09:15)
[2017-02-16] MEDS: ASPIRIN 81 MG CHEW TAB PO SCH (09:15)
[2017-02-16] MEDS: BUDESONIDE-FORMOTEROL 80/4.5 MCG INHALER INH SCH (10:27)
--- NOTE | 2017-02-16 13:52 | ECHRPT ---
Indication: Chest pain, unspecified CONCLUSIONS Normal left ventricular size. Mild concentric left ventricular hypertrophy. The left ventricular systolic function is normal with an estimated ejection fraction in the range of 55-60%. Trace mitral valve regurgitation. There is a trivial pericardial effusion present. BP: 130 / 90 HR: 50 Rhythm: Sinus MEASUREMENTS (Male / Female) Normal Values Technical Quality:Good 2D ECHO LV Diastolic Diameter PLAX 4.6 cm 4.2 - 5.9 / 3.9 - 5.3 cm LV Systolic Diameter PLAX 3.4 cm IVS Diastolic Thickness 1.3 cm 0.6 - 1.0 / 0.6 - 0.9 cm LVPW Diastolic Thickness 0.9 cm 0.6 - 1.0 / 0.6 - 0.9 cm LV Relative Wall Thickness 0.5 M-MODE Aortic Root Diameter MM 3.9 cm AV Cusp Separation MM 2.3 cm DOPPLER Mitral E Point Velocity 75.5 cm/s Mitral A Point Velocity 74.0 cm/s Mitral E to A Ratio 1.0 LV E' Lateral Velocity 7.9 cm/s Mitral E to LV E' Lateral Ratio 9.6 LV E' Septal Velocity 8.4 cm/s Mitral E to LV E' Septal Ratio 9.0 TR Peak Velocity 187.0 cm/s TR Peak Gradient 14.0 mmHg FINDINGS LEFT VENTRICLE Normal left ventricular size. Mild concentric left ventricular hypertrophy. The left ventricular systolic function is normal with an estimated ejection fraction in the range of 55-60%. RIGHT VENTRICLE Normal right ventricular size and systolic function. LEFT ATRIUM The left atrial size is normal. RIGHT ATRIUM The right atrial size is normal. ATRIAL SEPTUM Normal atrial septal thickness without atrial level shunting by limited color doppler interrogation. AORTA The aortic root and proximal ascending aorta are normal in size on limited imaging. MITRAL VALVE Trace mitral valve regurgitation. AORTIC VALVE Trileaflet aortic valve. No aortic valve stenosis or regurgitation. TRICUSPID VALVE Structurally normal tricuspid valve. No tricuspid valve stenosis or regurgitation. PULMONARY VALVE The pulmonary valve is not well visualized. VESSELS The inferior vena cava is normal in size. PERICARDIUM There is a trivial pericardial effusion present. Tomas Tabor MD, FACC (Electronically Signed) Final Date:16 February 2017 13:52
== END 2017-02-16 15:00 | disposition home or self-care (01) | DRG 917 ==
LOC: NEPE 01:39 → NEDA 04:09 → NEPGCP 04:41 → OBSVTOIN 13:26 → HCIS 17:31 → HCIN 18:38
PROVIDERS: ADMIT Hospitalist; ATTEND Hospitalist
PROC: B2111ZZ Fluoroscopy of Multiple Coronary Arteries using Low Osmolar Contrast (ICD-10-PCS; 2017-02-15)
PROC: 4A023N7 Measurement of Cardiac Sampling and Pressure, Left Heart, Percutaneous Approach (ICD-10-PCS; principal; 2017-02-15 15:00)
DX: T40.5X1A Poisoning by cocaine, accidental (unintentional), initial encounter (principal); I21.4 Non-ST elevation (NSTEMI) myocardial infarction; N17.9 Acute kidney failure, unspecified; I95.9 Hypotension, unspecified; I34.0 Nonrheumatic mitral (valve) insufficiency; I45.10 Unspecified right bundle-branch block; R11.2 Nausea with vomiting, unspecified; Z87.891 Personal history of nicotine dependence; F12.90 Cannabis use, unspecified, uncomplicated; Z82.49 Family history of ischemic heart disease and other diseases of the circulatory system; F14.10 Cocaine abuse, uncomplicated; Y92.9 Unspecified place or not applicable; I10 Essential (primary) hypertension
CPT/HCPCS: 71010; 78582; 80048; 80053; 80061; 82550; 82552; 83036; 83690; 83735; 83880; 84484; 85025; 85027; 85379; 85610; 85730; 93005; 93306; 93454; 94640; 94664; 96361; 96374; A9540; A9567; C1769; C1893; J0583; J1644; J2250; J2405; J3010; J7030; J7040; J7512; Q9967

== ENCOUNTER 2017-03-13 08:47 | Emergency (ER) | payer SELFPAY ==
[~2017-03-13 08:47] MED LIST changes: +ASPI81TA11 PO; -LISI10TA3 PO; +LOVA20TA PO; -PRED10PA PO
[2017-03-13 08:48] VITALS: BP 138/74; PULSE 84; RESP 15; TEMP 98.1; O2SAT 95
[2017-03-13] MEDS ORDERED: PRED-503 PO (09:35)
[2017-03-13] MEDS ORDERED: VENTAER INH (09:35)
--- NOTE | 2017-03-13 09:35 | PD ---
HPI Chief Complaint: Respiratory Symptoms Time Seen by Provider: 09:23 Travel History International Travel<30 days: No Contact w/Intl Traveler<30days: No Traveled to known affect area: No History of Present Illness HPI Is a 56-year-old male who presents emergent Phillips of trouble breathing. He had 2 recent admissions with extensive workup for chest pain. He had CTA, V2, heart catheter, echo that was all unremarkable. He states that his COPD was now fully address. He states he still having trouble breathing. 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 No chest pain. No fevers. No other complaints. PFSH Past Medical History Asthma: No Blood Disorders: No Anxiety: No Depression: No Heart Rhythm Problems: No Cancer: No Cardiac Catheterization: Yes Cardiovascular Problems: Yes High Cholesterol: Yes Chemotherapy: No Chest Pain: Yes Congestive Heart Failure: No COPD: Yes Diminished Hearing: No Endocrine: No Genitourinary: No Hypertension: Yes Immune Disorder: No Musculoskeletal: No Neurologic: No Psychiatric: No Reproductive: No Respiratory: Yes Myocardial Infarction: Yes Radiation Therapy: No Sleep Apnea: No Social History Alcohol Use: No Tobacco Use: No (quit 3 weeks ago.) Substance Use: Yes (MARIJUANA) Allergies-Medications (Allergen,Severity, Reaction): Coded Allergies: No Known Allergies (Unverified , 02/14/17) Reported Meds & Prescriptions Reported Meds & Active Scripts Active Lovastatin 20 Mg Tab 20 Mg PO DAILY Aspirin EC (Aspirin) 81 Mg Tabdr 81 Mg PO DAILY Proair Hfa 8.5 GM Inh (Albuterol Sulfate) 90 Mcg/Act Aer 2 Puff INH Q4-6H PRN 108 mcg/actuation Review of Systems Except as stated in HPI: all other systems reviewed are Neg Physical Exam Narrative GENERAL: Well-appearing 56 old man, no acute distress. SKIN: Focused skin assessment warm/dry. HEAD: Atraumatic. Normocephalic. EYES: Pupils equal and round. No scleral icterus. No injection or drainage. ENT: No nasal bleeding or discharge. Mucous membranes pink and moist. NECK: Trachea midline. No JVD. CARDIOVASCULAR: Regular rate and rhythm. No murmur appreciated. RESPIRATORY: Faint expiratory wheezing. Prolonged expert for the face. GASTROINTESTINAL: Abdomen soft, non-tender, nondistended. Hepatic and splenic margins not palpable. MUSCULOSKELETAL: No obvious deformities. No clubbing. No cyanosis. No edema. NEUROLOGICAL: Awake and alert. No obvious cranial nerve deficits. Motor grossly within normal limits. Normal speech. PSYCHIATRIC: Appropriate mood and affect; insight and judgment normal. Data Data Last Documented VS Vital Signs Date Time Temp Pulse Resp B/P (MAP) Pulse Ox O2 Delivery O2 Flow Rate FiO2 03/13/17 08:48 98.1 84 15 138/74 (95) 95 MDM Medical Decision Making Medical Screen Exam Complete: Yes Emergency Medical Condition: Yes Differential Diagnosis COPD, wheezing, pneumonia, other Narrative Course Medical decision making 56-year-old male with COPD here with exacerbation. States he cannot afford any outpatient medications. He has a Ventolin inhaler which has 24 more actuation' s. He was recently admitted states it did talk to him about outpatient resources including patient assistance. Diagnosis Primary Impression: COPD exacerbation Additional Instructions: Use albuterol inhaler every 4-6 hours until symptoms resolve. Take prednisone as prescribed. Follow-up with healthcare for the homeless or with patient assistance for further management of her chronic COPD. Return to the emergency department for any new or worsening symptoms. Med/Other Pt SpecificInfo: Prescription(s) given Scripts Prednisone (Deltasone) 20 Mg Tab 40 MG PO DAILY for 10 Days, TAB 0 Refills Prov: Tomas Higgins MD 03/13/17 Albuterol 18 GM Inh (Ventolin Hfa 18 GM Inh) 90 Mcg/Act Aer 2 PUFF INH Q4H Y for SHORTNESS OF BREATH, #1 INHALER 0 Refills Prov: Tomas Higgins MD 03/13/17 Disposition: 01 DISCHARGE HOME Condition: Stable Tomas Higgins MD Mar 13, 2017 09:35
[2017-03-13] MEDS ORDERED: DEXAMETHASONE SOD PHOS 20 MG/5 ML VIAL IM ONE (09:45)
[2017-03-13] MEDS ORDERED: RESP: ALBUTEROL 2.5 MG/IPRATROPIUM 0.5 MG NEB (SCH) NEB ONE (09:45)
[2017-03-13 10:00] VITALS: PULSE 69; RESP 18; O2SAT 94
[2017-03-13 11:00] VITALS: BP 167/86
== END 2017-03-13 11:00 | disposition home or self-care (01) ==
LOC: NEPD 08:47
DX: J44.1 Chronic obstructive pulmonary disease with (acute) exacerbation (principal); I10 Essential (primary) hypertension; E78.00 Pure hypercholesterolemia, unspecified; Z59.0 Homelessness
CPT/HCPCS: 94664; 96372; 99284; J1100

== ENCOUNTER 2017-03-19 16:49 | Emergency (ER) | payer SELFPAY ==
[~2017-03-19] VITALS: Ht 170.2 cm; Wt 70.0 kg
[~2017-03-19 16:49] MED LIST changes: +PRED-503 PO; +VENTAER INH
[2017-03-19 16:56] VITALS: BP 170/98; PULSE 107; RESP 22; TEMP 97.7; O2SAT 96
--- NOTE | 2017-03-19 17:10 | PD ---
HPI Chief Complaint: Respiratory Distress Time Seen by Provider: 17:02 Travel History International Travel<30 days: No Contact w/Intl Traveler<30days: No Traveled to known affect area: No History of Present Illness HPI Patient comes in complaining of COPD exacerbation that began approximately 3 hours prior to arrival. Patient reports he has been using his albuterol with minimal improvement of symptoms. Patient received treatments along with steroids in route that seemed to help with his symptoms some but he is still feeling short of breath. Patient denies any chest pain with this, nausea, vomiting, headache, back pain, neck pain, abdominal pain, loss or change in bowel or bladder. Patient states he feels his medication he is on makes his symptoms worse. Patient states Symbicort seems to help him more. Patient states he has been coughing occasionally coughs up some phlegm. PFSH Past Medical History Asthma: No Blood Disorders: No Anxiety: No Depression: No Heart Rhythm Problems: No Cancer: No Cardiac Catheterization: Yes Cardiovascular Problems: Yes High Cholesterol: Yes Chemotherapy: No Chest Pain: Yes Congestive Heart Failure: No COPD: Yes Diminished Hearing: No Endocrine: No Genitourinary: No Hypertension: Yes Immune Disorder: No Musculoskeletal: No Neurologic: No Psychiatric: No Reproductive: No Respiratory: Yes (COPD) Immunizations Current: No Myocardial Infarction: Yes Radiation Therapy: No Sleep Apnea: No Social History Alcohol Use: No Tobacco Use: No (quit 90 DAYS ago.) Substance Use: Yes (MARIJUANA, OCC SMOKE COCAINE) Allergies-Medications (Allergen,Severity, Reaction): Coded Allergies: No Known Allergies (Unverified , 03/13/17) Reported Meds & Prescriptions Reported Meds & Active Scripts Active Symbicort Inh (Budesonide/Formoterol Fumarate) 80-4.5 Mcg/Act Aero 1 Puff INH Q12HR Prednisone 20 Mg Tab 20 Mg PO BID 4 Days Deltasone (Prednisone) 20 Mg Tab 40 Mg PO DAILY 10 Days Ventolin Hfa 18 GM Inh (Albuterol Sulfate) 90 Mcg/Act Aer 2 Puff INH Q4H PRN Lovastatin 20 Mg Tab 20 Mg PO DAILY Review of Systems Except as stated in HPI: all other systems reviewed are Neg Physical Exam Narrative GENERAL: Well-developed, well nourished, in no acute distress, and non-ill appearing. SKIN: Focused skin assessment warm and dry. HEAD: Atraumatic. Normocephalic. EYES: Pupils equal and round. EOMI. No scleral icterus. No injection or drainage. ENT: No nasal bleeding or discharge. Mucous membranes pink and moist. NECK: Trachea midline. No JVD. Supple. No nuclear rigidity. CARDIOVASCULAR: Regular rate and rhythm. No murmur appreciated. RESPIRATORY: Minimal accessory muscle use. No respiratory distress. Scant expiratory wheezing throughout. Breath sounds equal bilaterally. MUSCULOSKELETAL: No obvious deformities. No clubbing. No cyanosis. No edema. Full range of motion. NEUROLOGICAL: Awake and alert. No obvious cranial nerve deficits. Motor grossly within normal limits. Normal speech. PSYCHIATRIC: Appropriate mood and affect; insight and judgment normal. Data Data Last Documented VS Vital Signs Date Time Temp Pulse Resp B/P (MAP) Pulse Ox O2 Delivery O2 Flow Rate FiO2 03/19/17 17:00 104 24 96 Nasal Cannula 2.00 03/19/17 16:56 97.7 170/98 (122) Orders Orders Albuterol-Ipratropium Neb (Duoneb Neb) (03/19/17 17:15) [facility] Medical Decision Making Medical Screen Exam Complete: Yes Emergency Medical Condition: Yes Differential Diagnosis COPD exacerbation, uncontrolled COPD, pneumonia, medical noncompliance, other Narrative Course The patient looks great and improved well with Nebulizer and steroid medication. The patient is moving air well and in no distress nor significant dyspnea, and oxygen saturation is within normal limits. There is no clinical evidence to suggest pneumonia at this time. Diagnosis, plan of care and management were discussed with the patient who agreed with plan and feels better and ready to go home. The patient was instructed to return if worsen, worsening difficulty breathing or wheezing, persistent fever, chest pain or as needed. Patient in no obvious distress upon re-evaluation. Discussed patient with Dr. Roberts prior to discharge, who is in agreement with plan of care and disposition. Patient was asked if they wanted to speak to my attending, which the patient did not wish to do at this time. Any questions/concerns in reference to patient diagnosis/condition discussed and clarified prior to patient's discharge. Reinforced sheer importance of close follow up with patient's primary physician or primary care clinic. Instructed patient to return to ED immediately, if symptoms return/worsen. Pt showed understanding of above instructions. Further instructions and recommendations were detailed in discharge paperwork. Pt ambulated without difficulty out of ED at discharge. Diagnosis Primary Impression: COPD exacerbation Referrals: [facility] Patient Instructions: COPD (Chronic Obstructive Pulmonary Disease) (ED), General Instructions Additional Instructions: Follow-up with your primary care physician in 3-5 days for reevaluation. Take all medication as prescribed. Return to the emergency department if symptoms get worse. Med/Other Pt SpecificInfo: Prescription(s) given Scripts Budesonide-Formoterol Inh (Symbicort Inh) 80-4.5 Mcg/Act Aero 1 PUFF INH Q12HR for Asthma Management, #1 INHALER 0 Refills Prov: Juan Roberts MD 03/19/17 Prednisone (Prednisone) 20 Mg Tab 20 MG PO BID for 4 Days, TAB 0 Refills Prov: Juan Roberts MD 03/19/17 Disposition: 01 DISCHARGE HOME Condition: Stable Kevin Armstrong Mar 19, 2017 17:10
[2017-03-19] MEDS: RESP: ALBUTEROL 2.5 MG/IPRATROPIUM 0.5 MG NEB (SCH) INH (17:12)
[2017-03-19] MEDS ORDERED: SYMB80AE INH (18:24)
[2017-03-19] MEDS ORDERED: PRED20 PO (18:24)
== END 2017-03-19 19:55 | disposition home or self-care (01) ==
LOC: NEPE 16:49
DX: J44.1 Chronic obstructive pulmonary disease with (acute) exacerbation (principal); I10 Essential (primary) hypertension; E78.00 Pure hypercholesterolemia, unspecified
CPT/HCPCS: 94640; 94664; 99284

== ENCOUNTER 2017-04-18 13:59 | Emergency (ER) | payer SELFPAY ==
[~2017-04-18] VITALS: Ht 170.2 cm; Wt 70.0 kg
[~2017-04-18 13:59] MED LIST changes: -ALBUAER3 INH; -ASPI81TA11 PO; +PRED20 PO; +SYMB80AE INH
[2017-04-18 14:01] VITALS: BP 134/86; PULSE 107; RESP 15; TEMP 98.4; O2SAT 96
--- NOTE | 2017-04-18 14:47 | RADRPT ---
EXAM DATE/TIME: 04/18/2017 14:33 [facility] COMPARISON: No previous studies available for comparison. INDICATIONS : Shortness of breath. MEDICAL HISTORY : Chronic obstructive pulmonary disease. SURGICAL HISTORY : None. ENCOUNTER: Initial ACUITY: 2 days PAIN SCORE: 0/10 LOCATION: Bilateral chest FINDINGS: PA and lateral views of the chest demonstrate the lungs to be symmetrically aerated without evidence of mass, infiltrate or effusion. The cardiomediastinal contours are unremarkable. Osseous structure s are intact. CONCLUSION: 1. No acute cardiopulmonary disease. Aguilar Michel MD on April 18, 2017 at 14:45 Board Certified Radiologist. This report was verified electronically.
--- NOTE | 2017-04-18 16:23 | PD ---
HPI Chief Complaint: Respiratory Symptoms Time Seen by Provider: 16:23 Travel History International Travel<30 days: No Contact w/Intl Traveler<30days: No Traveled to known affect area: No History of Present Illness HPI 57-year-old male with history of COPD presents Department with increasing wheezing and shortness of breath. Patient states he used to take Ventolin and Symbicort, ran out of his inhalers about a week ago. Patient continues to smoke. He denies fever, chills, or chest pain. Chest x-ray was ordered in triage showing no acute cardiopulmonary process. Vital signs are normal. Patient has no known drug allergies. PFSH Past Medical History Asthma: No Blood Disorders: No Anxiety: No Depression: No Heart Rhythm Problems: No Cancer: No Cardiac Catheterization: Yes Cardiovascular Problems: Yes High Cholesterol: Yes Chemotherapy: No Chest Pain: Yes Congestive Heart Failure: No COPD: Yes Diminished Hearing: No Endocrine: No Genitourinary: No Hypertension: Yes Immune Disorder: No Musculoskeletal: No Neurologic: No Psychiatric: No Reproductive: No Respiratory: Yes (COPD) Immunizations Current: No Myocardial Infarction: Yes Radiation Therapy: No Sleep Apnea: No Social History Alcohol Use: No Tobacco Use: No (quit 90 DAYS ago.) Substance Use: Yes (MARIJUANA, OCC SMOKE COCAINE) Allergies-Medications (Allergen,Severity, Reaction): Coded Allergies: No Known Allergies (Unverified , 03/13/17) Reported Meds & Prescriptions Reported Meds & Active Scripts Active Prednisone 20 Mg Tab 20 Mg PO BID 5 Days Symbicort Inh (Budesonide/Formoterol Fumarate) 80-4.5 Mcg/Act Aero 1 Puff INH Q12HR Ventolin Hfa 18 GM Inh (Albuterol Sulfate) 90 Mcg/Act Aer 2 Puff INH Q4H PRN Prednisone 20 Mg Tab 20 Mg PO BID 4 Days Deltasone (Prednisone) 20 Mg Tab 40 Mg PO DAILY 10 Days Lovastatin 20 Mg Tab 20 Mg PO DAILY Review of Systems Except as stated in HPI: all other systems reviewed are Neg General / Constitutional: No: Fever Eyes: No: Visual changes HENT: No: Headaches Cardiovascular: No: Chest Pain or Discomfort, Palpitations, Irregular Rhythm, Tachycardia, Diaphoresis Respiratory: Positive: Cough, Shortness of Breath, Wheezing Gastrointestinal: No: Abdominal Pain Genitourinary: No: Dysuria Musculoskeletal: No: Pain Skin: No Rash Neurologic: No: Weakness Psychiatric: No: Depression Endocrine: No: Polydipsia Hematologic/Lymphatic: No: Easy Bruising Physical Exam Narrative GENERAL: Patient appears no acute distress. He is able speak in full sentences. SKIN: Warm and dry. Normal color. Normal turgor. HEAD: Atraumatic. Normocephalic. EYES: Pupils equal and round. No scleral icterus. No injection or drainage. ENT: No nasal bleeding or discharge. Mucous membranes pink and moist. NECK: Trachea midline. Supple and nontender. CARDIOVASCULAR: Regular rate and rhythm. RESPIRATORY: No accessory muscle use. Moderate Diffuse wheezes throughout to auscultation. Breath sounds equal bilaterally. GASTROINTESTINAL: Abdomen soft, non-tender, nondistended. Hepatic and splenic margins not palpable. MUSCULOSKELETAL: Extremities without clubbing, cyanosis, or edema. No obvious deformities. NEUROLOGICAL: Awake and alert. No obvious cranial nerve deficits. Motor grossly within normal limits. Five out of 5 muscle strength in the arms and legs. Normal speech. PSYCHIATRIC: Appropriate mood and affect; insight and judgment normal. Data Data Last Documented VS Vital Signs Date Time Temp Pulse Resp B/P (MAP) Pulse Ox O2 Delivery O2 Flow Rate FiO2 04/18/17 18:00 97.8 86 20 140/83 (102) 96 04/18/17 17:40 21 04/18/17 16:41 Room Air Orders Orders Chest, Pa & Lat (04/18/17 14:09) Albuterol-Ipratropium Neb (Duoneb Neb) (04/18/17 16:30) Prednisone (Deltasone) (04/18/17 16:30) Azithromycin (Zithromax) (04/18/17 16:30) MDM Medical Decision Making Medical Screen Exam Complete: Yes Emergency Medical Condition: Yes Medical Record Reviewed: Yes Differential Diagnosis COPD. Wheezing. COPD with acute exacerbation. Need for smoking cessation. Narrative Course Patient is felt to be medically stable at time of exam. Patient is given a DuoNeb 3. Patient is given prednisone 40 mg by mouth now. Patient is given azithromycin 500 mg by mouth now. Patient will be continued on prednisone 20 mg twice a day 5 days. Patient is given prednisone 500 mg daily 5 days. Patient is given a refill of his Ventolin 2 puffs every 4-6 hours when necessary cough. Patient is given a refill of his Symbicort 1 puff twice a day. Patient is referred to [facility] for further refills and primary care needs. Diagnosis Primary Impression: COPD exacerbation Referrals: [facility] call for appointment Patient Instructions: General Instructions, How to Stop Smoking (DC) Additional Instructions: Patient will be continued on prednisone 20 mg twice a day 5 days. Patient is given prednisone 500 mg daily 5 days. Patient is given a refill of his Ventolin 2 puffs every 4-6 hours when necessary cough. Patient is given a refill of his Symbicort 1 puff twice a day. Patient is referred to his [facility] for further refills and primary care needs. Med/Other Pt SpecificInfo: Prescription(s) given Scripts Azithromycin (Azithromycin) 500 Mg Tab 500 MG PO DAILY for Infection, #5 TAB 0 Refills Prov: Liana Albrecht DO 04/18/17 Prednisone (Prednisone) 20 Mg Tab 20 MG PO BID for 5 Days, #10 TAB 0 Refills Prov: Liana Albrecht DO 04/18/17 Budesonide-Formoterol Inh (Symbicort Inh) 80-4.5 Mcg/Act Aero 1 PUFF INH Q12HR for Asthma Management, #1 INHALER 0 Refills Prov: Liana Albrecht DO 04/18/17 Albuterol 18 GM Inh (Ventolin Hfa 18 GM Inh) 90 Mcg/Act Aer 2 PUFF INH Q4H Y for SHORTNESS OF BREATH, #1 INHALER 0 Refills Prov: Liana Albrecht DO 04/18/17 Disposition: 01 DISCHARGE HOME Condition: Stable Asad Heath Apr 18, 2017 16:23
[2017-04-18] MEDS ORDERED: AZITHROMYCIN 250 MG TAB PO ONE (16:30)
[2017-04-18] MEDS ORDERED: predniSONE 20 MG TAB PO ONE (16:30)
[2017-04-18] MEDS ORDERED: PRED20 PO (16:43)
[2017-04-18] MEDS ORDERED: AZIT500T2 PO (16:43)
[2017-04-18] MEDS ORDERED: VENTAER INH (16:43)
[2017-04-18] MEDS ORDERED: SYMB80AE INH (16:43)
[2017-04-18 17:40] VITALS: O2SAT 98
[2017-04-18] MEDS: RESP: ALBUTEROL 2.5 MG/IPRATROPIUM 0.5 MG NEB (SCH) INH ×2 (17:40→17:41)
[2017-04-18 18:00] VITALS: BP 140/83; TEMP 97.8
== END 2017-04-18 18:05 | disposition home or self-care (01) ==
LOC: NEPC 13:59
DX: J44.1 Chronic obstructive pulmonary disease with (acute) exacerbation (principal); I10 Essential (primary) hypertension
CPT/HCPCS: 71020; 94640; 94664; 99285; J7512

== ENCOUNTER 2017-11-24 12:41 | Emergency (ER) | END 2017-11-24 18:40 | disposition home or self-care (01) | DX: J44.1 Chronic obstructive pulmonary disease with (acute) exacerbation (principal); F12.90 Cannabis use, unspecified, uncomplicated; Z72.0 Tobacco use | CPT/HCPCS: 71046; 80053; 81001; 84484; 85025; 93005; 94640; 94664; 96374; 99285; J2930 ==